=== PATIENT | male | born 1985 | race Caucasian/White ===

== ENCOUNTER 2021-03-20 17:48 | Emergency (ER) | payer BC ==
[2021-03-20] MEDS: Gentamicin 0.3% Ophth Soln 5 ML Bottle EYERT ONE (18:48)
[2021-03-20] MEDS: Tetracaine HCl/PF 0.5% 4 ML Bottle EYERT ONE (18:50)
[2021-03-20] MEDS: Fluorescein 1 MG Ophth Strip EYERT ONE (18:50)
--- NOTE | 2021-03-21 12:10 | EDM.PDOC ---
Scribed by Lala Mcgrath 03/20/21 1838 for Kalpesh Thibodeaux MD ED HPI GENERAL MEDICAL PROBLEM - General Chief Complaint: ENT Problem Stated Complaint: Metal in eye Time Seen by Provider: 03/20/21 18:25 Source of Information: Reports: Patient, RN, RN Notes Reviewed History Limitations: Reports: No Limitations - History of Present Illness INITIAL COMMENTS - FREE TEXT/NARRATIVE: Patient presents to ED by POV with complaint of a metal in the right eye while using a Dremel tool on metal at home. No other injuries. Denies pain adn visual changes. Onset: Today Duration: Getting Worse Location: Reports: Other (right eye) Quality: Reports: Ache Severity: Moderate Improves with: Reports: None Worsens with: Reports: None Associated Symptoms: Reports: No Other Symptoms - Related Data Allergies Allergy/AdvReac Type Severity Reaction Status Date / Time No Known Allergies Allergy Verified 03/20/21 18:18 Past Medical History - Past Health History Medical/Surgical History: Denies Medical/Surgical History Social & Family History - Family History Family Medical History: No Pertinent Family History - Living Situation & Occupation Living situation: Reports: , with Spouse Occupation: Employed ED ROS GENERAL - Review of Systems Review Of Systems: Comprehensive ROS is negative, except as noted in HPI. ED EXAM GENERAL W FULL EYE - Physical Exam Exam: See Below Exam Limited By: No Limitations General Appearance: Alert, WD/WN, No Apparent Distress Eye Exam: Right Eye: Foreign Body (12 o'clock position Rt cornea), Bilateral Eye: EOMI, PERRL Eyelids: Right: Foreign Body, Lid Everted for Exam, Bilateral: Normal Appearance Conjunctiva & Sclera: Bilateral: Normal Appearance Cornea Exam: Right: Foreign Body, Examined with Flourescein, Left: Normal Appearance Extraocular Movements: Bilateral: Intact Pupils: Normal Accommodation Pupillary Size: Bilateral: 3 mm Anterior Chamber: Right: Normal Appearance Throat/Mouth: Normal Voice Head: Atraumatic, Normocephalic Respiratory/Chest: No Respiratory Distress Neurological: Alert, Oriented, CN II-XII Intact, Normal Cognition Psychiatric: Normal Mood Skin Exam: Warm, Dry, Normal Color ED EYE w/ Add Procedure - Eye Procedure Alcaine Drops Administered: Yes Eye FB Removal: Other (Comfort) Antibiotic Oinment/Drps Admin: Right Eye Progress: Metallic FB removed from right cornea. No rust ring. No residual FB. No complications. Course - Vital Signs Last Recorded V/S: Last Vital Signs Temp 98.1 F 03/20/21 18:20 Pulse 88 03/20/21 18:20 Resp 16 03/20/21 18:20 BP 125/66 03/20/21 18:20 Pulse Ox 99 03/20/21 18:20 - Orders/Labs/Meds Meds: Medications Discontinued Medications Generic Name Dose Route Start Last Admin Trade Name Arlette PRN Reason Stop Dose Admin Fluorescein Sodium 1 mg 03/20/21 18:20 03/20/21 18:50 Fluorescein 1 Mg Ophth Strip EYERT 03/20/21 18:21 1 mg ONETIME ONE Administration Gentamicin Sulfate 1 ml 03/20/21 18:34 03/20/21 18:48 Gentamicin 0.3% Ophth Soln 5 Ml Bottle EYERT 03/20/21 18:35 1 ml ONETIME ONE Administration Tetracaine HCl 1 ml 03/20/21 18:18 03/20/21 18:50 Tetracaine Hcl/Pf 0.5% 4 Ml Bottle EYERT 03/20/21 18:19 1 ml ASDIRECTED ONE Administration Departure - Departure Time of Disposition: 18:34 Disposition: Home, Self-Care 01 Condition: Good Clinical Impression: Foreign body in cornea, right eye, initial encounter - Discharge Information *PRESCRIPTION DRUG MONITORING PROGRAM REVIEWED*: Not Applicable *COPY OF PRESCRIPTION DRUG MONITORING REPORT IN PATIENT ELIUD: Not Applicable Instructions: Eye Foreign Body, [id number], Corneal Abrasion Referrals: Shila Lazaro MD [Primary Care Provider] - Forms: ED Department Discharge Additional Instructions: Gentamicin Ophthalmic Solution 0.3% one drop into right eye four times a day for five days. Wear sunglasses. Do not rub your eye. Follow up in eye clinic in 2 days for recheck if needed. I have read and agree with the documentation that has been completed regarding this visit. By signing this record, I attest that the documentation was completed in my physical presence and is an accurate record of the encounter.
== END 2021-03-20 18:50 | disposition home or self-care (01) ==
LOC: DL.ED 17:48
DX: T15.01XA Foreign body in cornea, right eye, initial encounter (principal)
CPT/HCPCS: 65220; 99283; A9270